=== PATIENT | female | born 1945 | race African-American/Black ===

== ENCOUNTER 2017-11-20 17:29 | Emergency (ER) | payer OTHER ==
[2017-11-20] MEDS ORDERED: LIDOCAINE 1% MPF 2 ML AMPULE ONE (20:36)
[2017-11-20] MEDS ORDERED: TETANUS & DIPHTHERIA TOX,ADULT 0.5 ML VIAL ONE (20:36)
--- NOTE | 2017-11-20 21:46 | RAD REPORT ---
EXAM DESCRIPTION: CT - Head Brain Wo Cont - 11/20/2017 9:28 pm CLINICAL HISTORY: Head injury status post fall. Headache. COMPARISON: None. TECHNIQUE: Computed axial tomography of the head was obtained. IV contrast was not requested. All CT scans are performed using dose optimization technique as appropriate and may include automated exposure control or mA/KV adjustment according to patient size. FINDINGS: An intracranial bleed is not seen . The ventricles are normal in caliber. No extra-axial fluid collection is noted. Fluid within the sinuses/ mastoids is not seen. IMPRESSION: No acute intracranial abnormality is seen. If patient's symptoms persist MRI of the bra in would be recommended.
--- NOTE | 2017-11-20 21:54 | ER ---
Nurse's Notes [facility] Name: Edel Al Age: 72 yrs Sex: Female : 1945 Arrival Date: 11/20/2017 Time: 17:31 Bed 23 Private MD: out of town, doctor Diagnosis: Laceration without foreign body of unspecified part of head Presentation: 11/20 17:41 Presenting complaint: Patient states: right forehead laceration after tripping and sv falling onto concrete. right shoulder abrasion noted. Transition of care: patient was not received from another setting of care. Complicating Factors: The patient fell landing on an outstretched hand. Onset of symptoms was November 20, 2017. Care prior to arrival: None. 17:41 Method Of Arrival: Ambulatory sv 17:41 Acuity: ZABRINA 4 sv 19:08 Risk Assessment: Do you want to hurt yourself or someone else? Patient reports no rv desire to harm self or others. Initial Sepsis Screen: Does the patient meet any 2 criteria? No. Patient's initial sepsis screen is negative. Does the patient have a suspected source of infection? No. Patient's initial sepsis screen is negative. Historical: - Allergies: 17:44 No Known Allergies; sv - Home Meds: 17:44 alpha lipoic acid oral oral [Active]; vitamin b6 [Active]; biotin oral oral [Active]; sv - PMHx: 17:44 neuropathy; sv - PSHx: 17:44 D \T\ C; Appendectomy; sv - Immunization history:: Adult Immunizations up to date. - Social history:: Smoking status: Patient/guardian denies using tobacco. - Ebola Screening: : No symptoms or risks identified at this time. Screenin:08 Abuse screen: Denies threats or abuse. Denies injuries from another. Nutritional rv screening: No deficits noted. Tuberculosis screening: No symptoms or risk factors identified. Fall Risk None identified. Assessment: 19:04 General: Appears in no apparent distress. comfortable, Behavior is calm, cooperative. rv Pain: Complains of pain in FOREHEAD, RIGHT SIDE; PINKY FINGER OF RIGHT HAND; RIGHT SHOULDER. Neuro: Level of Consciousness is awake, alert, obeys commands, Oriented to person, place, time. Cardiovascular: Capillary refill < 3 seconds. Respiratory: Airway is patent. GI: No signs and/or symptoms were reported involving the gastrointestinal system. : No signs and/or symptoms were reported regarding the genitourinary system. EENT: No signs and/or symptoms were reported regarding the EENT system. Derm: Wound noted ABOVE THE RIGHT EYE. Musculoskeletal: Reports pain in RIGHT HAND, RIGHT SHOULDER, HEAD. Injury Description: Laceration is clean, jagged, 2.6 to 7.5 cm long, bleeding moderately. Vital Signs: 17:45 BP 138 / 94; Pulse 98; Resp 18; Temp 98.8(O); Pulse Ox 97% ; Weight 62.6 kg; Height 5 sv ft. 0 in. (152.40 cm); Pain 5/10; 18:45 BP 143 / 85 LA Sitting (auto/reg); Pulse 69; Resp 19 S; Pulse Ox 99% on R/A; Pain 6/10; jp3 19:09 BP 159 / 86; Pulse 64; Pulse Ox 100% on R/A; rv 21:09 BP 142 / 76; Pulse 79; Pulse Ox 99% on R/A; rv 17:45 Body Mass Index 26.95 (62.60 kg, 152.40 cm) sv ED Course: 17:31 Patient arrived in ED. sb2 17:32 out of town, doctor is Private Physician. sb2 17:43 Triage completed. sv 17:45 Arm band placed on left wrist. sv 17:47 Patient placed in waiting room, Patient notified of wait time. sv 18:50 Bed in low position. Call light in reach. Side rails up X 1. Warm blanket given. Pillow jp3 given. Pulse ox on. NIBP on. 19:44 Luis Oden NP is PHCP. pm1 19:44 Alfie Fernandez MD is Attending Physician. pm1 21:10 Assist provider with laceration repair on above the right eye that was between 2.6 to rv 7.5 cm using sutures. Set up tray. Performed by Luis Oden DISPLAY CARD WRITER Dressed with 4X4s, Patient tolerated well. 21:28 CT Head Brain wo Cont In Process Unspecified. EDMS 22:08 Patient did not have IV access during this emergency room visit. rv Administered Medications: 20:39 Drug: Tetanus-Diphtheria Toxoid Adult 0.5 ml {Property Assistant: [email or web address]. Exp: rv 12/15/2020. Lot #: [id number]. } Route: IM; Site: left deltoid; 22:09 Follow up: Response: No adverse reaction rv Outcome: 21:53 Discharge ordered by . pm1 22:07 Discharged to home ambulatory. rv 22:07 Condition: good 22:07 Discharge instructions given to patient, Instructed on discharge instructions, follow up and referral plans. 22:08 Patient left the ED. rv Signatures: Dispatcher [employer] Purvi Dc RN RN Luis Oden, DISPLAY CARD WRITER DISPLAY CARD WRITER pm1 Belkis Soot sb2 Karthik Brennan RN RN rv Anton Bolton jp3 Corrections: (The following items were deleted from the chart) 17:46 17:41 Presenting complaint: Patient states: right forehead laceration after tripping sv and falling onto concrete. sv 17:46 17:45 Pulse 98bpm; Resp 18bpm; Pulse Ox 97%; Temp 98.8F Oral; 62.6 kg; Height 5 ft. 0 sv in.; BMI: 26.9; Pain 5/10; sv
--- NOTE | 2017-11-20 21:54 | EDPHYS ---
Physician Documentation [facility] Name: Edel Al Age: 72 yrs Sex: Female : 1945 Arrival Date: 11/20/2017 Time: 17:31 Bed 23 Private MD: out of town, doctor ED Physician Alfie Fernandez HPI: 11/20 21:46 This 72 yrs old Black Female presents to ER via Ambulatory with complaints of pm1 Laceration To Forehead. 21:46 The patient has a laceration related to: Walking occurred outdoors, and there are no pm1 complicating factors. The laceration(s) is(are) located on the forehead. 21:47 Onset: The symptoms/episode began/occurred just prior to arrival. Associated signs and pm1 symptoms: Pertinent negatives: deformity, dizziness, loss of consciousness, suspected foreign body. The patient has not experienced similar symptoms in the past. The patient has not recently seen a physician. Patient was walking and stepped off the curb and lost her balance. Fell with right hand out to stop her fall and hit her forehead on the ground. Presenting with laceration above right eyebrow. No LOC, headache, neck pain. Historical: - Allergies: 17:44 No Known Allergies; sv - Home Meds: 17:44 alpha lipoic acid oral oral [Active]; vitamin b6 [Active]; biotin oral oral [Active]; sv - PMHx: 17:44 neuropathy; sv - PSHx: 17:44 D \T\ C; Appendectomy; sv - Immunization history:: Adult Immunizations up to date. - Social history:: Smoking status: Patient/guardian denies using tobacco. - Ebola Screening: : No symptoms or risks identified at this time. ROS: 21:47 Constitutional: Negative for fever, chills, and weight loss, Eyes: Negative for injury, pm1 pain, redness, and discharge, ENT: Negative for injury, pain, and discharge, Neck: Negative for injury, pain, and swelling, Cardiovascular: Negative for chest pain, palpitations, and edema, Respiratory: Negative for shortness of breath, cough, wheezing, and pleuritic chest pain, Abdomen/GI: Negative for abdominal pain, nausea, vomiting, diarrhea, and constipation, Back: Negative for injury and pain, MS/Extremity: Negative for injury and deformity. 21:47 Neuro: Negative for headache, weakness, numbness, tingling, and seizure. 21:47 Skin: Positive for laceration(s), of the forehead, right side. Exam: 21:47 Constitutional: This is a well developed, well nourished patient who is awake, alert, pm1 and in no acute distress. 21:47 Eyes: Pupils equal round and reactive to light, extra-ocular motions intact. Lids and lashes normal. Conjunctiva and sclera are non-icteric and not injected. Cornea within normal limits. Periorbital areas with no swelling, redness, or edema. ENT: Nares patent. No nasal discharge, no septal abnormalities noted. Tympanic membranes are normal and external auditory canals are clear. Oropharynx with no redness, swelling, or masses, exudates, or evidence of obstruction, uvula midline. Mucous membranes moist. Neck: Trachea midline, no thyromegaly or masses palpated, and no cervical lymphadenopathy. Supple, full range of motion without nuchal rigidity, or vertebral point tenderness. No Meningismus. Chest/axilla: Normal chest wall appearance and motion. Nontender with no deformity. No lesions are appreciated. Cardiovascular: Regular rate and rhythm with a normal S1 and S2. No gallops, murmurs, or rubs. Normal PMI, no JVD. No pulse deficits. Respiratory: Lungs have equal breath sounds bilaterally, clear to auscultation and percussion. No rales, rhonchi or wheezes noted. No increased work of breathing, no retractions or nasal flaring. Abdomen/GI: Soft, non-tender, with normal bowel sounds. No distension or tympany. No guarding or rebound. No evidence of tenderness throughout. Back: No spinal tenderness. No costovertebral tenderness. Full range of motion. Skin: Warm, dry with normal turgor. Normal color with no rashes, no lesions, and no evidence of cellulitis. MS/ Extremity: Pulses equal, no cyanosis. Neurovascular intact. Full, normal range of motion. 21:47 Head/face: Noted is no obvious of injury or deformity except a laceration(s), that is jagged, 4 cm(s), of the forehead. 21:47 Neuro: Orientation: is normal, Motor: moves all fours. Vital Signs: 17:45 BP 138 / 94; Pulse 98; Resp 18; Temp 98.8(O); Pulse Ox 97% ; Weight 62.6 kg; Height 5 sv ft. 0 in. (152.40 cm); Pain 5/10; 18:45 BP 143 / 85 LA Sitting (auto/reg); Pulse 69; Resp 19 S; Pulse Ox 99% on R/A; Pain 6/10; jp3 19:09 BP 159 / 86; Pulse 64; Pulse Ox 100% on R/A; rv 21:09 BP 142 / 76; Pulse 79; Pulse Ox 99% on R/A; rv 17:45 Body Mass Index 26.95 (62.60 kg, 152.40 cm) sv Laceration: 21:51 Wound Repair of 4cm ( 1.6in ) subcutaneous laceration to forehead. Irregularly shaped.. pm1 Distal neuro/vascular/tendon intact. Anesthesia: Local anesthetic administered with 3 mls of 1% lidocaine. Wound prep: Extensive cleansing with hibiclenz by me, Wound irrigation with saline by me, Wound explored extensively, Copious irrigation. Skin closed with 8 6-0 Prolene using simple sutures and sterile technique. Dressed with 4x4's. Patient tolerated well. MDM: 19:44 Patient medically screened. pm1 21:51 Data reviewed: vital signs. Data interpreted: Pulse oximetry: on room air is 99 %. pm1 Interpretation: normal. Counseling: I had a detailed discussion with the patient and/or guardian regarding: the historical points, exam findings, and any diagnostic results supporting the discharge/admit diagnosis, the need for outpatient follow up, suture removal in 4-5 days. 11/20 21:13 Order name: CT Head Brain wo Cont; Complete Time: 21:53 pm1 11/20 20:26 Order name: Prolene, Sutures; Complete Time: 20:36 pm1 11/20 20:26 Order name: Dressing - Wound; Complete Time: 20:36 pm1 11/20 20:26 Order name: Gloves, Sterile; Complete Time: 20:36 pm1 11/20 20:26 Order name: Setup Suture Tray; Complete Time: 20:36 pm1 Administered Medications: 20:39 Drug: Tetanus-Diphtheria Toxoid Adult 0.5 ml {Installation And Service Technician: Pwinty. Exp: rv 12/15/2020. Lot #: [id number]. } Route: IM; Site: left deltoid; 22:09 Follow up: Response: No adverse reaction rv Disposition: 11/21 01:59 Co-signature as Attending Physician, Alfie Fernandez MD. rn Disposition: 11/20/17 21:53 Discharged to Home. Impression: Laceration without foreign body of unspecified part of head. - Condition is Stable. - Discharge Instructions: Facial Laceration. - Medication Reconciliation Form, Thank You Letter, Antibiotic Education form. - Follow up: Emergency Department; When: As needed; Reason: Worsening of condition. Follow up: Private Physician; When: 4-5 days for suture removal; Reason: Staple/Suture removal. - Problem is new. - Symptoms have improved. Signatures: Dispatcher [employer] Purvi Dc, RN RN Alfie Toth MD MD rn Marinas, Patrick, VICE PRESIDENT COMPLIANCE VICE PRESIDENT COMPLIANCE pm1 Karthik Brennan RN RN rv Corrections: (The following items were deleted from the chart) 11/20 22:08 21:53 11/20/2017 21:53 Discharged to Home. Impression: Laceration without foreign body rv of unspecified part of head. Condition is Stable. Forms are Medication Reconciliation Form, Thank You Letter, Antibiotic Education, Prescription Opioid Use. Follow up: Emergency Department; When: As needed; Reason: Worsening of condition. Follow up: Private Physician; When: 4-5 days for suture removal; Reason: Staple/Suture removal. Problem is new. Symptoms have improved. pm1
== END 2017-11-20 22:08 | disposition home or self-care (01) ==
LOC: ER 17:29
PROC: 0JQ10ZZ Repair Face Subcutaneous Tissue and Fascia, Open Approach (ICD-10-PCS; principal; 2017-11-20)
DX: S01.81XA Laceration without foreign body of other part of head, initial encounter (principal); W17.89XA Other fall from one level to another, initial encounter; Y93.01 Activity, walking, marching and hiking; Y92.488 Other paved roadways as the place of occurrence of the external cause; G62.9 Polyneuropathy, unspecified; Z23 Encounter for immunization
CPT/HCPCS: 12013; 70450; 90714; 99284; J2001